=== PATIENT | female | born 1965 | race Caucasian/White ===

== ENCOUNTER 2021-03-17 06:52 | Observation (INO) ==
[2021-03-17] MEDS ORDERED: ALBUTEROL 2.5 MG/3 ML NEB RESP TX ONE ×2 (07:52→15:18)
[2021-03-17] MEDS ORDERED: DIAZEPAM 5 MG TABLET PO ONE (07:54)
[2021-03-17] MEDS ORDERED: GABAPENTIN 400 MG CAPSULE PO ONE (07:54)
[2021-03-17] MEDS ORDERED: FAMOTIDINE 20 MG TABLET PO ONE (07:54)
[2021-03-17] MEDS ORDERED: ACETAMINOPHEN 500 MG TABLET PO ONE (07:54)
[2021-03-17] MEDS ORDERED: LACTATED RINGERS 1,000 ML IV SCH (08:30)
[2021-03-17] MEDS ORDERED: LIDOCAINE 2% 5 ML VIAL ONE (08:46)
[2021-03-17] MEDS ORDERED: ROCURONIUM 50 MG/5 ML VIAL IV ONE (08:46)
[2021-03-17] MEDS ORDERED: propofoL 200 MG/20 ML VIAL IV ONE (08:46)
[2021-03-17] MEDS ORDERED: MIDAZOLAM 2 MG/2 ML VIAL ONE (08:47)
[2021-03-17] MEDS ORDERED: fentaNYL 100 MCG/2 ML VIAL ONE ×2 (08:47→12:02)
[2021-03-17] MEDS ORDERED: ROPIVACAINE 0.5% 30 ML VIAL ONE ×2 (09:03→09:29)
[2021-03-17] MEDS ORDERED: DEXAMETHASONE 4 MG/1 ML VIAL ONE ×2 (09:57→12:02)
[2021-03-17] MEDS ORDERED: ONDANSETRON 4 MG/2 ML VIAL ONE (12:22)
[2021-03-17] MEDS ORDERED: GLYCOPYRROLATE 0.4 MG/2 ML VIAL ONE ×2 (12:58)
[2021-03-17] MEDS ORDERED: SEVOFLURANE 1 UNIT/15 MINUTE INH ONE ×2 (14:27→14:50)
[2021-03-17] MEDS ORDERED: LACTATED RINGERS 1,000 ML IV ONE (14:29)
[2021-03-17] MEDS ORDERED: HYDROmorphone 2 MG/1 ML VIAL ONE ×2 (14:35→16:41)
[2021-03-17] MEDS ORDERED: GLUCAGON 1 MG VIAL IM PRN (14:41)
[2021-03-17] MEDS ORDERED: DEXTROSE 50% 25 GM/50 ML VIAL IV PRN (14:41)
[2021-03-17] MEDS ORDERED: TISSUE ADHESIVE 1 EACH APPLICATOR TOP ONE (14:42)
[2021-03-17] MEDS ORDERED: LABETALOL 100 MG/20 ML VIAL IV ONE (15:17)
[2021-03-17] MEDS ORDERED: LABETALOL 20 MG/4 ML SYRINGE IV ONE (15:22)
[2021-03-17] MEDS ORDERED: PROMETHAZINE 25 MG/1 ML VIAL IM PRN (16:05)
[2021-03-17] MEDS ORDERED: ONDANSETRON 4 MG/2 ML VIAL IV PRN (16:05)
[2021-03-17] MEDS ORDERED: HYDROmorphone 2 MG/1 ML VIAL IV PRN (16:05)
[2021-03-17] MEDS: KETOROLAC 30 MG/1 ML VIAL IV SCH ×2 (16:37→21:34)
[2021-03-17] MEDS: LACTATED RINGERS 1,000 ML IV SCH ×2 (16:38→23:22)
[2021-03-17 16:42] LABS: Basophils # 0.1 10*3/uL (0.0-0.2); Basophils % 0.3 % (0.0-0.8); Eosinophils % 0.1 % (0.00-10.9); Hematocrit 41.3 VOL% (35.7-47.0); Hemoglobin 13.7 GM/DL (12.0-16.0); Immature Granulocytes Absolute 0.17 #; Lymphocytes # 0.8 10*3/uL (1.4-4.0); Lymphocytes % 4.9 % (21.3-54.2); Mean Corpuscular HGB Conc 33.2 GM/DL (32-36); Mean Corpuscular Volume 92.4 FL (87-102); Mean Platelet Volume 11.1 FL (9.6-12.0); Monocytes % 1.9 % (1.7-12.7); Neutrophils % 91.8 % (38.7-73.9); Platelet Count 239 T/CUMM (130-400); Red Blood Count 4.47 MC/CUMM (3.8-5.5); Red Cell Distribution Width 13.3 % (9.3-17.3); White Blood Count 16.5 T/CUMM (4-12)
[2021-03-17] MEDS: INSULIN REGULAR 100 UNIT/ML SUBCUT SCH ×2 (16:42→21:33)
[2021-03-17 17:00] LABS: Calcium 8.6 MG/DL (8.5-10.1); Potassium 4.5 MMOL/L (3.5-5.1)
[2021-03-17 18:09] LABS: Lymphocytes 9 % (20-55); Segmented Neutrophils 89 % (50-85); Total Cells Counted 100
[2021-03-17] MEDS ORDERED: ALBUTEROL 2.5 MG/3 ML NEB RESP TX PRN (19:00)
[2021-03-17] MEDS ORDERED: ATORVASTATIN 10 MG TABLET PO SCH (21:00)
[2021-03-17] MEDS: busPIRone 5 MG TABLET PO SCH (21:33)
[2021-03-17] MEDS: BUDESONIDE/FORMOTEROL 160-4.5 INHALER 6 GM INH SCH (21:44)
[2021-03-18] MEDS: KETOROLAC 30 MG/1 ML VIAL IV SCH ×2 (04:53→10:42)
[2021-03-18 05:38] LABS: Basophils % 0.2 % (0.0-0.8); Hematocrit 37.9 VOL% (35.7-47.0); Hemoglobin 12.4 GM/DL (12.0-16.0); Immature Granulocytes % 0.8 %; Immature Granulocytes Absolute 0.14 #; Lymphocytes # 1.4 10*3/uL (1.4-4.0); Lymphocytes % 7.7 % (21.3-54.2); Mean Corpuscular HGB Conc 32.7 GM/DL (32-36); Mean Platelet Volume 11.3 FL (9.6-12.0); Monocytes % 3.6 % (1.7-12.7); Neutrophils % 87.7 % (38.7-73.9); Platelet Count 219 T/CUMM (130-400); Red Blood Count 4.03 MC/CUMM (3.8-5.5); Red Cell Distribution Width 13.2 % (9.3-17.3); White Blood Count 17.6 T/CUMM (4-12)
[2021-03-18 06:02] LABS: Calcium 8.4 MG/DL (8.5-10.1); Osmolality,Calculated 278.7 MOS/KG (273-304); Potassium 4.3 MMOL/L (3.5-5.1)
[2021-03-18] MEDS ORDERED: ARFORMOTEROL 15 MCG/2 ML NEB RESP TX SCH (07:00)
[2021-03-18] MEDS ORDERED: oxyCODONE/ACETAMINOPHEN 5-325 MG TABLET PO PRN (07:55)
[2021-03-18] MEDS: INSULIN REGULAR 100 UNIT/ML SUBCUT SCH ×2 (08:48→12:02)
[2021-03-18] MEDS: busPIRone 5 MG TABLET PO SCH (08:49)
[2021-03-18] MEDS: BUDESONIDE/FORMOTEROL 160-4.5 INHALER 6 GM INH SCH (08:50)
[2021-03-18] MEDS ORDERED: PANTOPRAZOLE 40 MG VIAL IV SCH (09:00)
[2021-03-18] MEDS ORDERED: ENOXAPARIN 40 MG/0.4 ML SYRINGE SUBCUT SCH (09:00)
[2021-03-18] MEDS ORDERED: CYANOCOBALAMIN 500 MCG TABLET PO SCH (09:00)
[2021-03-18 11:20] VITALS: BP 124/67
[2021-03-19] MEDS ORDERED: ERGOCALCIFEROL 50,000 UNIT CAPSULE PO SCH (09:00)
== END 2021-03-18 14:30 | disposition home or self-care (01) | DRG 337 ==
LOC: N.OR 06:52 → N.SDSINP 06:52 → N.4E 14:38 → INTOOBSV 14:38 → N.4E 15:55
PROVIDERS: ADMIT Surgery; ATTEND Surgery